=== PATIENT | female | born 1935 | race Caucasian/White ===

== ENCOUNTER 2017-03-23 12:51 | Emergency (ER) | payer MEDICARE, BC ==
[~2017-03-23] VITALS: Ht 154.9 cm; Wt 56.8 kg
[~2017-03-23 12:51] MED LIST: ASPI325T6 PO; ASPIR-LOW81 MG PO; ASPIRIN 32325 MG/TAB; ASPIRIN 81M81 MG/TA2 PO; BETAPACE 120MG120 MG PO; BETAPACE 80MG80 MG PO; CARDIZEM CD 18180 MG PO; CARDIZEM CD 24240 MG PO; CORDARONE200 MG/TAB PO; FISH OIL1 IU PO; HCTZ 25MG TAB25 MG PO; HCTZ PO; LANOXIN 0.120.125 MG PO; LASIX 20MG TABL20 MG PO; LIPITOR 80MG80 MG PO; LIPITOR40 MG PO; MOTRIN 200200 MG/TAB PO; MULTI VITAMINS1 TAB PO; NORVASC 10MG10 MG PO; NORVASC 5MG5 MG/TAB PO; NORVASC PO; PRILOSEC 20MG20 MG PO; THERAPEUTIC VIT1 CAP PO; TIKOSYN0.125 MG PO; TIKOSYN0.25 MG PO; TOPROL XL 25MG25 MG PO; TOPROL XL 50MG50 MG PO; TUMS 500500 MG PO; TUMS500 MG PO; TYLENOL 325MG325 MG PO; TYLENOL 8 HR PO; ULTRAM 50MG TAB50 MG PO; XARELTO20 MG PO
[2017-03-23 12:56] VITALS: TEMP 98.3
[2017-03-23 13:22] LABS: BASO % 0.3 % (0.0-2.0); EOS % 0.2 % (0-4.0); GRAN # 9.2 (1.4-6.5); GRAN % 72.9 % (42.2-75.2); LYMPH # 2.2 (1.2-3.4); LYMPH % 17.3 % (20.0-51.0); MEAN CELL VOLUME 92 fl (80.0-100.0); MEAN CORPUSCULAR HGB CONC 31 g/dl (33.0-37.0); MEAN PLATELET VOLUME 9.8 fl (7.4-10.4); MONO # 1.1 (0.1-0.6); MONO % 8.8 % (1.7-9.3); PLATELET COUNT 382 K/mm3 (130-400); RED BLOOD COUNT 3.62 M/mm3 (4.10-5.30); REDCELL DISTRIBUTION WIDTH-CV 15.5 % (11.5-14.5); WHITE BLOOD COUNT 12.6 K/mm3 (4.8-10.8)
[2017-03-23 13:28] LABS: PARTIAL THROMBOPLASTIN TIME 39.7 SECONDS (26.0-37.0)
[2017-03-23 13:32] LABS: INR 1.6 (0.8-3.0); PROTHROMBIN TIME 17.7 SECONDS (9.7-12.8)
[2017-03-23 13:36] LABS: HEMATOCRIT 33.4 % (37.0-47.0); HEMOGLOBIN 10.5 g/dl (12.5-16.0); MEAN CORPUSCULAR HEMOGLOBIN 29 pg (27.0-31.0)
[2017-03-23 13:48] LABS: ALANINE AMINOTRANSFERASE 16 U/L (9-52); ALBUMIN 4.2 gm/dL (3.5-5.0); ALKALINE PHOSPHATASE 83 U/L (50-136); ANION GAP 14 mmol/L (7-16); BILIRUBIN,TOTAL 0.5 mg/dL (0.0-1.0); BLOOD UREA NITROGEN 22 mg/dL (7-17); CALCIUM 9.2 mg/dL (8.4-10.2); CARBON DIOXIDE 22 mmol/L (22-30); CHLORIDE 103 mmol/L (98-107); CREATININE, serum 0.81 mg/dL (0.52-1.25); GLUCOSE 118 mg/dL (74-106); SODIUM 138 mmol/L (137-145); TOTAL PROTEIN 7.3 gm/dL (6.4-8.2)
[2017-03-23 13:57] LABS: B-TYPE NATRIURETIC PEPTIDE 690 pg/mL (0-450)
[2017-03-23 14:02] LABS: TROPONIN-I < 0.012 ng/mL (0.000-0.034)
[2017-03-23 14:19] LABS: PH 6 (5-8); SQUAMOUS EPITHELIAL 0-2 /hpf; URINE APPEARANCE Clear; URINE BACTERIA Rare /hpf; URINE BILIRUBIN Negative (NEGATIVE); URINE BLOOD Negative (NEGATIVE); URINE COLOR Yellow; URINE GLUCOSE Negative (NEGATIVE); URINE KETONE Negative (NEGATIVE); URINE RBC 0-2 /hpf; URINE UROBILINOGEN Negative (NEGATIVE); URINE WBC 0-2 /hpf
[2017-03-23 17:32] VITALS: BP 149/69; PULSE 63
== END 2017-03-23 17:32 | disposition home or self-care (01) ==
LOC: COL.ER 12:51
PROVIDERS: Emergency Medicine
DX: R42 Dizziness and giddiness (principal); I48.91 Unspecified atrial fibrillation; I10 Essential (primary) hypertension; E78.5 Hyperlipidemia, unspecified; I73.9 Peripheral vascular disease, unspecified; Z95.0 Presence of cardiac pacemaker
CPT/HCPCS: J7040; J7050

== ENCOUNTER 2018-01-23 14:30 | Outpatient (CLI) | payer MEDICARE, BC ==
[~2018-01-23] VITALS: Ht 154.9 cm; Wt 60.0 kg
[2018-01-23 15:06] VITALS: BP 142/60; PULSE 90; TEMP 98
[2018-01-23] MEDS ORDERED: TYLENOL 325MG325 MG PO (15:39)
[2018-01-23] MEDS ORDERED: CARTIA XT240 MG PO (15:40)
[2018-01-23] MEDS ORDERED: LIPITOR 80MG80 MG PO (15:40)
[2018-01-23] MEDS ORDERED: TUMS500 MG (15:40)
[2018-01-23] MEDS ORDERED: HEMOCYTE324 MG PO (15:41)
== END 2018-01-23 17:00 | disposition home or self-care (01) ==
LOC: EUO 14:30
DX: M81.0 Age-related osteoporosis without current pathological fracture (principal)
CPT/HCPCS: J3489

== ENCOUNTER → 2018-03-03 | Outpatient (CLI) | payer MEDICARE, BC ==
[~2018-03-03] MED LIST changes: +CARTIA XT240 MG PO; +HEMOCYTE324 MG PO; +TUMS500 MG
== END ==
LOC: MC.RAD 12:42
DX: Z12.31 Encounter for screening mammogram for malignant neoplasm of breast (principal); N64.89 Other specified disorders of breast

== ENCOUNTER 2018-03-08 07:32 | Day surgery (SDC) | payer MEDICARE, BC ==
[~2018-03-08] VITALS: Ht 155 cm; Wt 59.1 kg
[2018-03-08 08:05] LABS: POTASSIUM 4.3 mmol/L (3.4-5.0)
[2018-03-08 08:10] LABS: INR 1.1 (0.8-3.0); PROTHROMBIN TIME 12.7 SECONDS (9.7-12.8)
[2018-03-08 08:24] VITALS: BP 132/81; PULSE 60
[2018-03-08 08:38] LABS: THYROID STIMULATING HORMONE 5.63 uIU/mL (0.465-4.680)
[2018-03-08] MEDS ORDERED: TOPROL XL100 MG PO (08:50)
== END 2018-03-08 09:05 | disposition home or self-care (01) ==
LOC: COL.CAR 07:32
PROVIDERS: Internal Medicine Cardiovascular Disease
DX: I48.0 Paroxysmal atrial fibrillation (principal); Z53.8 Procedure and treatment not carried out for other reasons; D64.9 Anemia, unspecified; Z86.79 Personal history of other diseases of the circulatory system; Z79.01 Long term (current) use of anticoagulants; I10 Essential (primary) hypertension; M81.0 Age-related osteoporosis without current pathological fracture; I73.9 Peripheral vascular disease, unspecified; M41.9 Scoliosis, unspecified; Z87.891 Personal history of nicotine dependence; Z84.89 Family history of other specified conditions; I08.1 Rheumatic disorders of both mitral and tricuspid valves; Z95.828 Presence of other vascular implants and grafts

== ENCOUNTER → 2018-03-10 | Outpatient (CLI) | payer MEDICARE, BC ==
[~2018-03-10] MED LIST changes: +TOPROL XL100 MG PO
== END ==
LOC: MC.RAD 12:44
DX: N64.89 Other specified disorders of breast (principal)

== ENCOUNTER 2019-07-30 08:56 | Day surgery (SDC) | payer MEDICARE, BC ==
--- NOTE | 2019-07-27 17:39 | NUR ---
Called pt, left a voicemail msg to have pt call back to express unit to discuss procedure on tuesday.
[~2019-07-30] VITALS: Ht 155 cm; Wt 58.7 kg
[2019-07-30 09:19] VITALS: BP 122/85; PULSE 84; TEMP 98
[2019-07-30] MEDS ORDERED: FERROUSAL325 MG PO (09:43)
[2019-07-30 09:57] VITALS: BP 122/85; PULSE 76
[2019-07-30 10:50] VITALS: BP 133/85; PULSE 69; TEMP 97.5
[2019-07-30 11:05] VITALS: BP 119/62; PULSE 69
--- NOTE | 2019-07-30 11:06 | NUR ---
Initial dose of propofol 40mg given into IV in the left AC infiltrated. Pt complained of discomfort. Warm compress applied and new IV site started in the left hand. Post procedure pt reports her arm feels back to normal. No edema or redness noted. This was relayed to RN upon completion of procedure.
[2019-07-30 11:20] VITALS: BP 122/60; PULSE 70
[2019-07-30 11:29] LABS: HEMATOCRIT 37.5 % (37.0-47.0); HEMOGLOBIN 12.2 g/dl (12.5-16.0); MEAN CELL VOLUME 103 fl (80.0-100.0); MEAN CORPUSCULAR HEMOGLOBIN 34 pg (27.0-31.0); MEAN CORPUSCULAR HGB CONC 33 g/dl (33.0-37.0); PLATELET COUNT 239 K/mm3 (130-400); RED BLOOD COUNT 3.63 M/mm3 (4.10-5.30); REDCELL DISTRIBUTION WIDTH-CV 14.1 % (11.5-14.5)
[2019-07-30 11:35] VITALS: BP 111/60; PULSE 70
[2019-07-30 11:44] LABS: INR 2.1 (0.8-3.0); PROTHROMBIN TIME 24.7 SECONDS (9.7-12.8)
[2019-07-30 11:47] LABS: PARTIAL THROMBOPLASTIN TIME 37.3 SECONDS (26.0-37.0)
[2019-07-30 11:48] LABS: CALCIUM 9.2 mg/dL (8.4-10.2); CREATININE, serum 0.88 (0.52-1.25); MAGNESIUM 1.9 mg/dL (1.6-2.3); POTASSIUM 4.3 mmol/L (3.4-5.0)
--- NOTE | 2019-07-30 12:00 | NUR ---
Discharge paperwork discussed with pt. Discussed discharge order/meds, eduation and follow up appointment with pt. Answered all questions to pt's satisfaction. Pt signed discharge forms and placed in chart. Pt discharged and left express unit via wheelchair to private vehicle driven by son.
[2019-07-30 12:17] LABS: THYROID STIMULATING HORMONE 2.89 uIU/mL (0.465-4.680)
== END 2019-07-30 12:00 | disposition home or self-care (01) ==
LOC: COL.CAR 08:56
PROVIDERS: Internal Medicine Cardiovascular Disease
DX: I48.91 Unspecified atrial fibrillation (principal); I71.4 Abdominal aortic aneurysm, without rupture; I10 Essential (primary) hypertension; I73.9 Peripheral vascular disease, unspecified; D64.9 Anemia, unspecified; E78.5 Hyperlipidemia, unspecified; G89.29 Other chronic pain; M48.00 Spinal stenosis, site unspecified; M81.0 Age-related osteoporosis without current pathological fracture; M47.9 Spondylosis, unspecified; Z90.710 Acquired absence of both cervix and uterus; Z95.0 Presence of cardiac pacemaker; Z88.8 Allergy status to other drugs, medicaments and biological substances; Z87.891 Personal history of nicotine dependence; Z82.49 Family history of ischemic heart disease and other diseases of the circulatory system
CPT/HCPCS: J2704; J2710

== ENCOUNTER 2019-12-12 09:33 | Day surgery (SDC) | payer MEDICARE, BC ==
[~2019-12-12] VITALS: Ht 152.5 cm; Wt 59.6 kg
[~2019-12-12 09:33] MED LIST changes: +FERROUSAL325 MG PO; +PACERONE200 MG PO
[2019-12-12] MEDS ORDERED: PACERONE400 MG PO (09:47)
[2019-12-12] MEDS ORDERED: TOPROL XL100 MG PO (09:48)
[2019-12-12] MEDS ORDERED: TIKOSYN0.25 MG PO (09:49)
[2019-12-12 10:10] VITALS: BP 138/90; PULSE 81; TEMP 98.2
[2019-12-12 10:19] LABS: HEMATOCRIT 39.2 % (37.0-47.0); HEMOGLOBIN 12.3 g/dl (12.5-16.0); MEAN CELL VOLUME 105 fl (80.0-100.0); MEAN CORPUSCULAR HEMOGLOBIN 33 pg (27.0-31.0); MEAN CORPUSCULAR HGB CONC 31 g/dl (33.0-37.0); MEAN PLATELET VOLUME 10.1 fl (7.4-10.4); PLATELET COUNT 268 K/mm3 (130-400); RED BLOOD COUNT 3.74 M/mm3 (4.10-5.30); REDCELL DISTRIBUTION WIDTH-CV 14.8 % (11.5-14.5)
[2019-12-12 10:25] LABS: CREATININE, serum 1.16 (0.52-1.25); POTASSIUM 4.6 mmol/L (3.4-5.0)
[2019-12-12 10:44] VITALS: BP 149/80; PULSE 74; TEMP 97
[2019-12-12 10:55] LABS: THYROID STIMULATING HORMONE 11.2 uIU/mL (0.465-4.680)
[2019-12-12 10:59] VITALS: BP 151/80; PULSE 74; TEMP 97
[2019-12-12 11:14] VITALS: BP 152/87; PULSE 74; TEMP 97
[2019-12-12 11:29] VITALS: BP 156/85; PULSE 75; TEMP 97
[2019-12-12 11:59] VITALS: BP 163/88; PULSE 74; TEMP 97
--- NOTE | 2019-12-12 11:59 | NUR ---
INT discontinued intact. Discharge instructions given . Transferred to private car by acacia
== END 2019-12-12 12:00 | disposition home or self-care (01) ==
LOC: COL.CAR 09:33
PROVIDERS: Internal Medicine Cardiovascular Disease
DX: I48.0 Paroxysmal atrial fibrillation (principal); I10 Essential (primary) hypertension; I73.9 Peripheral vascular disease, unspecified; E78.5 Hyperlipidemia, unspecified; D64.9 Anemia, unspecified; I71.4 Abdominal aortic aneurysm, without rupture; M19.90 Unspecified osteoarthritis, unspecified site; G89.29 Other chronic pain; I25.10 Atherosclerotic heart disease of native coronary artery without angina pectoris; K21.9 Gastro-esophageal reflux disease without esophagitis; Z90.710 Acquired absence of both cervix and uterus; Z88.8 Allergy status to other drugs, medicaments and biological substances; Z79.01 Long term (current) use of anticoagulants; Z88.1 Allergy status to other antibiotic agents; Z87.891 Personal history of nicotine dependence; Z95.0 Presence of cardiac pacemaker
CPT/HCPCS: J2704

== ENCOUNTER 2020-03-11 10:28 | Day surgery (SDC) | payer MEDICARE, BC ==
[~2020-03-11] VITALS: Ht 152.4 cm; Wt 60.4 kg
[~2020-03-11 10:28] MED LIST changes: +PACERONE400 MG PO; -THERAPEUTIC VIT1 CAP PO; +XARELTO15 MG PO
[2020-03-11 10:47] VITALS: BP 136/96; PULSE 90
[2020-03-11 11:32] LABS: HEMATOCRIT 38.3 % (37.0-47.0); HEMOGLOBIN 12.1 g/dl (12.5-16.0); MEAN CELL VOLUME 105 fl (80.0-100.0); MEAN CORPUSCULAR HEMOGLOBIN 33 pg (27.0-31.0); MEAN CORPUSCULAR HGB CONC 32 g/dl (33.0-37.0); PLATELET COUNT 229 K/mm3 (130-400); RED BLOOD COUNT 3.65 M/mm3 (4.10-5.30); REDCELL DISTRIBUTION WIDTH-CV 15.2 % (11.5-14.5)
[2020-03-11 11:38] LABS: INR 2.3 (0.8-3.0); PROTHROMBIN TIME 25.4 SECONDS (9.7-12.8)
[2020-03-11 11:41] LABS: PARTIAL THROMBOPLASTIN TIME 42.9 SECONDS (26.0-37.0)
[2020-03-11 11:45] LABS: CALCIUM 9.1 mg/dL (8.4-10.2); CREATININE, serum 1.03 (0.52-1.25); POTASSIUM 4.5 mmol/L (3.4-5.0)
[2020-03-11 12:45] VITALS: BP 154/84; PULSE 75
--- NOTE | 2020-03-11 12:52 | NUR ---
PT BACK FROM OCCUPATIONAL HEALTH COORDINATOR, SHE IS AWAKE AND ALERT, A-PACED ON MONITOR, RT CALLED FOR REPEAT EKG.
[2020-03-11 13:00] VITALS: BP 151/82; PULSE 74
[2020-03-11 13:15] VITALS: BP 163/87; PULSE 74
[2020-03-11 13:30] VITALS: BP 104/98; PULSE 74
--- NOTE | 2020-03-11 13:41 | NUR ---
Pt is ready for discharge. She has remained awake and alert with unlabored respirations during her recovery. I have reviewed dc/fu instructions with her. she has remained apaced with apparent underlying sinus rhythm during her recovery. iv is dc'd with cath intact. PT ESCORTED TO EXIT VIA WHEELCHAIR
== END 2020-03-11 13:45 | disposition home or self-care (01) ==
LOC: COL.CAR 10:28
PROVIDERS: Internal Medicine Cardiovascular Disease
DX: I48.91 Unspecified atrial fibrillation (principal); Z95.0 Presence of cardiac pacemaker; I71.4 Abdominal aortic aneurysm, without rupture; D64.9 Anemia, unspecified; E78.5 Hyperlipidemia, unspecified; I10 Essential (primary) hypertension; G89.29 Other chronic pain; M81.0 Age-related osteoporosis without current pathological fracture; Z87.891 Personal history of nicotine dependence

== ENCOUNTER 2020-05-17 12:10 | Emergency (ER) | payer MEDICARE, BC ==
[~2020-05-17] VITALS: Ht 154.9 cm; Wt 59.1 kg
[~2020-05-17 12:10] MED LIST changes: +NORCO 325 MG-51 TAB PO; +OMNICEF 300MG300 MG PO
[2020-05-17 12:16] VITALS: TEMP 98.4
[2020-05-17 12:46] LABS: BASO % 0.3 % (0.0-2.0); EOS % 0.4 % (0-4.0); GRAN # 8.4 (1.4-6.5); GRAN % 76.4 % (42.2-75.2); HEMATOCRIT 38.3 % (37.0-47.0); HEMOGLOBIN 12.4 g/dl (12.5-16.0); LYMPH # 1.4 (1.2-3.4); LYMPH % 13.1 % (20.0-51.0); MEAN CELL VOLUME 102 fl (80.0-100.0); MEAN CORPUSCULAR HEMOGLOBIN 33 pg (27.0-31.0); MEAN CORPUSCULAR HGB CONC 32 g/dl (33.0-37.0); MEAN PLATELET VOLUME 9.8 fl (7.4-10.4); MONO % 9.3 % (1.7-9.3); PLATELET COUNT 256 K/mm3 (130-400); RED BLOOD COUNT 3.74 M/mm3 (4.10-5.30); REDCELL DISTRIBUTION WIDTH-CV 14.2 % (11.5-14.5)
[2020-05-17 13:00] LABS: ALANINE AMINOTRANSFERASE 27 U/L (4-34); ALBUMIN 3.9 gm/dL (3.5-5.0); ALKALINE PHOSPHATASE 62 U/L (50-136); ANION GAP 7 mmol/L (7-16); AST,SGOT 38 U/L (15-37); BILIRUBIN,TOTAL 0.7 mg/dL (0.0-1.0); BLOOD UREA NITROGEN 17 mg/dL (7-17); CALCIUM 8.9 mg/dL (8.4-10.2); CARBON DIOXIDE 25 mmol/L (22-30); CHLORIDE 101 mmol/L (98-107); CREATININE, serum 0.95 (0.52-1.25); GLUCOSE 101 mg/dL (74-106); POTASSIUM 4.5 mmol/L (3.4-5.0); SODIUM 133 mmol/L (137-145); TOTAL PROTEIN 6.8 gm/dL (6.4-8.2)
[2020-05-17 13:13] LABS: C-REACTIVE PROTEIN < 0.5 mg/dL (0.0-0.9)
[2020-05-17 13:27] LABS: COLLECTION METHOD CLEAN CATCH
[2020-05-17 13:33] LABS: MUCOUS Present /lpf; PH 6 (5-8); URINE APPEARANCE Cloudy; URINE BACTERIA None Seen /hpf; URINE BILIRUBIN Negative (NEGATIVE); URINE BLOOD 3+ (NEGATIVE); URINE COLOR Yellow; URINE GLUCOSE Negative (NEGATIVE); URINE KETONE Negative (NEGATIVE); URINE LEUKOCYTE ESTERASE Negative (NEGATIVE); URINE NITRATE Negative (NEGATIVE); URINE PROTEIN(semi-quant) 1+ (NEGATIVE); URINE RBC 0-2 /hpf; URINE UROBILINOGEN Negative (NEGATIVE)
[2020-05-17] MEDS ORDERED: LIDODERM 5% PATC1 EA TP (14:48)
[2020-05-17 14:55] VITALS: BP 152/85; PULSE 88
== END 2020-05-17 15:15 | disposition home or self-care (01) ==
LOC: COL.ER 12:10
PROVIDERS: Emergency Medicine
DX: M54.5 Low back pain (principal); Z95.828 Presence of other vascular implants and grafts
CPT/HCPCS: J1100; J1170; J7030

== ENCOUNTER 2020-08-13 12:59 | Emergency (ER) | payer MEDICARE, BC ==
[~2020-08-13] VITALS: Ht 154.9 cm; Wt 59.1 kg
[~2020-08-13 12:59] MED LIST changes: +LIDODERM 5% PATC1 EA TP
[2020-08-13 13:55] LABS: BASO % 0.1 % (0.0-2.0); EOS % 0.1 % (0-4.0); GRAN # 12.7 (1.4-6.5); HEMOGLOBIN 12.7 g/dl (12.5-16.0); LYMPH # 1.2 (1.2-3.4); LYMPH % 8.1 % (20.0-51.0); MEAN CELL VOLUME 105 fl (80.0-100.0); MEAN CORPUSCULAR HEMOGLOBIN 33 pg (27.0-31.0); MEAN CORPUSCULAR HGB CONC 32 g/dl (33.0-37.0); MEAN PLATELET VOLUME 10.9 fl (7.4-10.4); MONO % 6.4 % (1.7-9.3); PLATELET COUNT 215 K/mm3 (130-400); REDCELL DISTRIBUTION WIDTH-CV 15.6 % (11.5-14.5)
[2020-08-13 14:01] LABS: INR 2.3 (0.8-3.0); PROTHROMBIN TIME 26.3 SECONDS (9.7-12.8)
[2020-08-13 14:04] LABS: ALBUMIN 4.2 gm/dL (3.5-5.0); CALCIUM 8.9 mg/dL (8.4-10.2); POTASSIUM 4.2 mmol/L (3.4-5.0); TOTAL PROTEIN 7.1 gm/dL (6.4-8.2)
[2020-08-13 14:20] LABS: TROPONIN-I 0.014 ng/mL (0.000-0.035)
[2020-08-13 18:27] VITALS: BP 168/107; PULSE 80; TEMP 97.6
== END 2020-08-13 18:27 | disposition home or self-care (01) ==
LOC: COL.ER 12:59
PROVIDERS: Emergency Medicine
DX: I13.0 Hypertensive heart and chronic kidney disease with heart failure and stage 1 through stage 4 chronic kidney disease, or unspecified chronic kidney disease (principal); I50.9 Heart failure, unspecified; N18.9 Chronic kidney disease, unspecified; I48.91 Unspecified atrial fibrillation; E78.5 Hyperlipidemia, unspecified; I71.4 Abdominal aortic aneurysm, without rupture; Z20.828 Contact with and (suspected) exposure to other viral communicable diseases; Z95.0 Presence of cardiac pacemaker; Z79.01 Long term (current) use of anticoagulants
CPT/HCPCS: J1940; J7030; J7040

== ENCOUNTER 2020-11-19 18:10 | Inpatient (IN) | payer MEDICARE, BC ==
[~2020-11-19] VITALS: Ht 154.9 cm; Wt 56.3 kg
[2020-11-19 19:50] LABS: BASO % 0.5 % (0.0-2.0); EOS # 0.1 (0.0-0.7); EOS % 0.8 % (0-4.0); GRAN # 5.9 (1.4-6.5); HEMOGLOBIN 10.7 g/dl (12.5-16.0); LYMPH # 1.4 (1.2-3.4); LYMPH % 16.8 % (20.0-51.0); MEAN CELL VOLUME 106 fl (80.0-100.0); MEAN CORPUSCULAR HEMOGLOBIN 34 pg (27.0-31.0); MEAN CORPUSCULAR HGB CONC 32 g/dl (33.0-37.0); MEAN PLATELET VOLUME 10.4 fl (7.4-10.4); MONO # 0.9 (0.1-0.6); MONO % 10.7 % (1.7-9.3); PLATELET COUNT 268 K/mm3 (130-400); RED BLOOD COUNT 3.18 M/mm3 (4.10-5.30); REDCELL DISTRIBUTION WIDTH-CV 13.5 % (11.5-14.5)
[2020-11-19 19:55] LABS: HEMATOCRIT 33.6 % (37.0-47.0)
[2020-11-19 19:59] LABS: BILIRUBIN,TOTAL 0.4 mg/dL (0.0-1.0); CALCIUM 8.9 mg/dL (8.4-10.2); CREATININE, serum 1.23 (0.52-1.25); POTASSIUM 4.2 mmol/L (3.4-5.0); TOTAL PROTEIN 6.7 gm/dL (6.4-8.2)
[2020-11-19 20:01] LABS: INR 1.4 (0.8-3.0); PROTHROMBIN TIME 15.8 SECONDS (9.7-12.8)
[2020-11-19 20:04] LABS: PARTIAL THROMBOPLASTIN TIME 33.5 SECONDS (26.0-37.0)
[2020-11-19] MEDS ORDERED: PRINIVIL10 MG PO (20:06)
[2020-11-19] MEDS ORDERED: PLAVIX 75MG TAB75 MG PO (20:07)
[2020-11-19] MEDS ORDERED: SYNTHROID0.075 MG/T PO (20:07)
[2020-11-19 23:32] VITALS: BP 141/73; PULSE 71; TEMP 97.6
[2020-11-20] VITALS (9 sets, daily range): BP systolic 114–160; BP diastolic 66–88; PULSE 68–82; TEMP 97.5–98.7
[2020-11-20 01:30] LABS: HEMATOCRIT 26.8 % (37.0-47.0); HEMOGLOBIN 8.4 g/dl (12.5-16.0)
[2020-11-20 06:25] LABS: HEMATOCRIT 29.8 % (37.0-47.0); HEMOGLOBIN 9.1 g/dl (12.5-16.0)
[2020-11-20 06:36] LABS: CREATININE, serum 0.91 (0.52-1.25); POTASSIUM 4.2 mmol/L (3.4-5.0)
--- NOTE | 2020-11-20 10:51 | NUR ---
Assessment completed, alert/oriented, vital signs stable, denies pain or discomfort, heber any further black or bloody stools, abd is soft and non-tender, BS+, heart RRR/ distal pulses are palpable, lungs CTA/ no resp.difficulty noted, scheduled for EGD today/ consent is signed and daughter present at bedside, rapid COVID swab negative, deny questions or concerns
--- NOTE | 2020-11-20 11:10 | NUR ---
Cleater met with the patient and the patient's [id number], Kirstin to complete intake. The patient lives independently in [place] with her . The patient has a cane and walker, if needed. The patient's PCP is Dr. Adams and patient receives medications from [facility]. The patient does not have advanced directives in the EMR but states they are complete. The patient plans to return home at discharge and Kirstin will provide transporation. There are no additional needs at this time.
--- NOTE | 2020-11-20 11:25 | NUR ---
First visit from the mobile equipment mechanic. No needs right now.
--- NOTE | 2020-11-20 12:30 | NUR ---
Patient arrived back to room 314 from ENDO at this time, she is alert/oriented, vital signs stable, denies pain, daughter present at bedside
[2020-11-20 13:22] LABS: HEMATOCRIT 31.3 % (37.0-47.0); HEMOGLOBIN 9.4 g/dl (12.5-16.0)
[2020-11-20 19:56] LABS: FOLATE (FOLIC ACID) >20.0 ng/mL (7.0-31.4)
[2020-11-21 00:08] VITALS: BP 143/75; PULSE 81; TEMP 98.5
[2020-11-21 03:59] VITALS: BP 150/75; PULSE 81; TEMP 98.1
[2020-11-21 07:05] LABS: MEAN CORPUSCULAR HGB CONC 31 g/dl (33.0-37.0); MEAN PLATELET VOLUME 10.9 fl (7.4-10.4); PLATELET COUNT 215 K/mm3 (130-400); REDCELL DISTRIBUTION WIDTH-CV 13.5 % (11.5-14.5)
[2020-11-21 07:08] LABS: HEMATOCRIT 31.1 % (37.0-47.0); HEMOGLOBIN 9.6 g/dl (12.5-16.0); MEAN CELL VOLUME 111 fl (80.0-100.0); MEAN CORPUSCULAR HEMOGLOBIN 34 pg (27.0-31.0)
[2020-11-21 07:16] LABS: ALBUMIN 3.3 gm/dL (3.5-5.0); BILIRUBIN,TOTAL 0.6 mg/dL (0.0-1.0); CALCIUM 8.5 mg/dL (8.4-10.2); CREATININE, serum 0.86 (0.52-1.25); POTASSIUM 4.5 mmol/L (3.4-5.0); TOTAL PROTEIN 5.9 gm/dL (6.4-8.2)
[2020-11-21 08:02] VITALS: BP 158/69; PULSE 70; TEMP 98.5
--- NOTE | 2020-11-21 09:08 | NUR ---
Pt sitting up in bed. She has had and tolerated her breakfast. She states that she is having some acid reflux. She reports that her thyroid medication does it. Tums ordered. She also states that she feels tired today. No other complaints. Will continu to monitor
[2020-11-21] MEDS ORDERED: ELIQUIS 2.5 PO (09:29)
[2020-11-21] MEDS ORDERED: PROTONIX 40MG T40 MG PO (09:30)
--- NOTE | 2020-11-21 11:15 | NUR ---
Pt is anxious about leaving. Therapy has worked with patient and reports she did well. ANTONINO Moss assisting patient with getting dressed. Tele called and informed patient will be going home. INT removed by Isa as well.
--- NOTE | 2020-11-21 11:45 | NUR ---
Reviewed dicharge instructions with patient to include prescriptions and appointments. Pt has no questions and is calling her ride. Informed her to notify nursing when her ride is here so that she can be walked out.
--- NOTE | 2020-11-21 12:00 | NUR ---
Laborer Rags attended clinical rounds with the team. The patient is to discharge home today, 11/21. PT ordered. PTs recommendation is home. After rounds, SW met with the patient to discuss the benefits of home health and provided Medicare.gov's list of home health agencies. The patient declined home health. The patient's [id number], Kirstin will provide transportation. There are no additional needs.
--- NOTE | 2020-11-21 12:02 | NUR ---
Pt escorted out at this time
--- NOTE | 2020-11-21 12:28 | NUR ---
Primary nurse was assisted with [id number] patient care by [employer] student Isa Betancourt and [employer] instructor Traci Cabrera RN-.
== END 2020-11-21 12:03 | disposition home or self-care (01) | DRG 379 ==
LOC: COL.ER 18:10 → MEDICAL 21:07
PROVIDERS: Emergency Medicine; Internal Medicine Gastroenterology; Physician Assistant; ADMIT Hospitalist
PROC: 0DJ08ZZ Inspection of Upper Intestinal Tract, Via Natural or Artificial Opening Endoscopic (ICD-10-PCS; principal; 2020-11-20 12:30)
DX: K25.4 Chronic or unspecified gastric ulcer with hemorrhage (principal); I48.91 Unspecified atrial fibrillation; I11.0 Hypertensive heart disease with heart failure; I50.9 Heart failure, unspecified; E78.5 Hyperlipidemia, unspecified; I73.9 Peripheral vascular disease, unspecified; D53.9 Nutritional anemia, unspecified; I25.10 Atherosclerotic heart disease of native coronary artery without angina pectoris; Z95.0 Presence of cardiac pacemaker; Z79.01 Long term (current) use of anticoagulants; Z87.891 Personal history of nicotine dependence; Z95.5 Presence of coronary angioplasty implant and graft; Z20.822 Contact with and (suspected) exposure to COVID-19
CPT/HCPCS: 99222-AI; 99223-AI; 99232-AI; 99239; C9113; J2704; J7030

== ENCOUNTER 2023-11-25 18:46 | Inpatient (IN) | payer MEDICARE, BC ==
[~2023-11-25] VITALS: Ht 152.4 cm; Wt 53.3 kg
[~2023-11-25 18:46] MED LIST changes: +ELIQUIS 2.5 PO; +PLAVIX 75MG TAB75 MG PO; +PRINIVIL10 MG PO; +PROTONIX 40MG T40 MG PO; +SYNTHROID0.075 MG/T PO
[2023-11-25] MEDS ORDERED: Albuterol/Ipratropium 3 MG-0.5 MG/3 ML Neb Soln IH SCH (20:15)
[2023-11-25] MEDS ORDERED: predniSONE 20 MG TAB PO ONE (20:15)
[2023-11-25 21:09] LABS: MEAN CELL VOLUME 98 fl (80.0-100.0); MEAN CORPUSCULAR HGB CONC 31 g/dl (33.0-37.0); MEAN PLATELET VOLUME 10.6 fl (7.4-10.4); PLATELET COUNT 219 K/mm3 (130-400); RED BLOOD COUNT 3.12 M/mm3 (4.10-5.30); REDCELL DISTRIBUTION WIDTH-CV 15.9 % (11.5-14.5)
[2023-11-25 21:24] LABS: ALBUMIN 3.6 gm/dL (3.4-4.8); BILIRUBIN,TOTAL 0.4 mg/dL (0.2-1.2); CREATININE, serum 1.14 mg/dL (0.57-1.11); POTASSIUM 4.1 mmol/L (3.5-4.5); TOTAL PROTEIN 6.8 gm/dL (6.2-8.1)
[2023-11-25 21:30] LABS: HEMATOCRIT 30.6 % (37.0-47.0); HEMOGLOBIN 9.4 g/dl (12.5-16.0); MEAN CORPUSCULAR HEMOGLOBIN 30 pg (27-31)
[2023-11-25 21:31] LABS: TROPONIN-I 0.04 ng/mL (0.00-0.033)
[2023-11-25] MEDS ORDERED: Acetaminophen 325 MG TAB PO PRN ×2 (21:45→22:30)
[2023-11-25 21:54] LABS: BAND 16 % (0-10); HYPOCHROMIA 1+; LYMPHOCYTE 8 % (20.0-51.0); METAMYELOCYTE 2 % (0-0); NEUTROPHILS 60 % (42.0-75.2); PLATELET ESTIMATE NORMAL (NORMAL)
[2023-11-25] MEDS ORDERED: Albuterol/Ipratropium 3 MG-0.5 MG/3 ML Neb Soln IH PRN (22:00)
[2023-11-25] MEDS ORDERED: cefTRIAXone 1 G in Water For Injection,Sterile 10 ML IV SCH (22:00)
[2023-11-25] MEDS ORDERED: Azithromycin 250 MG TAB PO SCH (22:01)
[2023-11-25] MEDS ORDERED: Oseltamivir 30 MG CAP PO SCH (22:03)
[2023-11-25] MEDS ORDERED: SYNTHROID0.05 MG/TA PO (22:20)
[2023-11-25] MEDS ORDERED: Apixaban 2.5 MG TAB PO SCH (22:21)
[2023-11-25] MEDS ORDERED: PRINIVIL40 MG PO (22:24)
[2023-11-25] MEDS ORDERED: traMADol 50 MG TAB PO PRN (22:30)
[2023-11-25 23:45] VITALS: BP 145/74; PULSE 73; TEMP 98.5
[2023-11-26] VITALS (10 sets, daily range): BP systolic 108–123; BP diastolic 54–75; PULSE 69–74; TEMP 98.2–98.8
[2023-11-26] MEDS ORDERED: MULTI-VITAMIN W1 TA1 PO (00:43)
[2023-11-26] MEDS ORDERED: Albuterol/Ipratropium 3 MG-0.5 MG/3 ML Neb Soln IH SCH (02:00)
--- NOTE | 2023-11-26 05:30 | NUR ---
PT ARRIVED TO THE MEDICAL FLOOR AROUND [id number] TO ROOM 357. PT A&O X 4; VSS FOR PT; O2 AT 0.5L VIA NC. PT DENIED GENERAL PAIN, CHEST PAIN, PALPITATIONS, N,V,D, SOB OR DIZZINESS.ADMISSIONS ASSESSMENT AND MED REC COMPLETE. PT ORIENTED TO ROOM AND HOSPITAL POLICY. ALL QUESTIONS AND CONCERNS ADRESSED. CALL LIGHT WITHIN REACH.
[2023-11-26 06:41] LABS: MEAN CELL VOLUME 94 fl (80.0-100.0); MEAN CORPUSCULAR HGB CONC 32 g/dl (33.0-37.0); MEAN PLATELET VOLUME 10.7 fl (7.4-10.4); PLATELET COUNT 199 K/mm3 (130-400); RED BLOOD COUNT 2.83 M/mm3 (4.10-5.30); REDCELL DISTRIBUTION WIDTH-CV 15.6 % (11.5-14.5)
[2023-11-26 06:57] LABS: CALCIUM 8.7 mg/dL (8.4-10.2); CREATININE, serum 0.99 mg/dL (0.57-1.11); POTASSIUM 4.2 mmol/L (3.5-4.5)
[2023-11-26 06:59] LABS: HEMATOCRIT 26.7 % (37.0-47.0); HEMOGLOBIN 8.4 g/dl (12.5-16.0); MEAN CORPUSCULAR HEMOGLOBIN 30 pg (27-31)
[2023-11-26 07:11] LABS: CHOLESTEROL RISK RATIO 3.2
[2023-11-26 07:54] LABS: BAND 11 % (0-10); LYMPHOCYTE 4 % (20.0-51.0); NEUTROPHILS 82 % (42.0-75.2); NUCLEATED RED BLOOD CELL 2 (0-6); PLATELET ESTIMATE NORMAL (NORMAL)
[2023-11-26] MEDS ORDERED: dexAMETHasone 10 MG/ML VIAL IV SCH (09:00)
[2023-11-26] MEDS ORDERED: Furosemide 40 MG TAB PO SCH (09:00)
--- NOTE | 2023-11-26 12:53 | NUR ---
linotype worker met with patient and Samy to discuss discharge planning. Samy (son) P# or . PCP is Dr. Adams, pharmacy is [facility]. No issues with affording medications. DPOA-HC is amanda Cosby, . DME is walker, cane, tub transfer bench. Patient reports to be independent with ADLS and her son, Samy, transports her to and from appointments. SW discussed home health services. patient understands what they are but does not want them at this time, Samy agreed patient does not need home health at this time. SW explained if patient returns home and wants those services she could meet with her PCP. Patient would like to return home at time of discharge. Discharge plan: Home
[2023-11-27 00:15] VITALS: BP 133/62; PULSE 74; TEMP 98.7
[2023-11-27 04:15] VITALS: BP 135/61; PULSE 70; TEMP 97.8
[2023-11-27 07:20] VITALS: BP 148/66; PULSE 77; TEMP 97.5
--- NOTE | 2023-11-27 07:26 | NUR ---
PATIENT ASLEEP, RESTING IN BED. KRISTAL ROUSEES EASILY TO NAME. PATIENT DENIES ANY SOB OR COMPLAINTS AT THIS TIME. VSS. PATIENT OR SATURATOINI 93% ON ROOM AIR. CALL LIGHT WITHIN REACH.
[2023-11-27 07:55] LABS: MEAN CELL VOLUME 96 fl (80.0-100.0); MEAN CORPUSCULAR HGB CONC 31 g/dl (33.0-37.0); MEAN PLATELET VOLUME 10.9 fl (7.4-10.4); PLATELET COUNT 201 K/mm3 (130-400); RED BLOOD COUNT 2.61 M/mm3 (4.10-5.30); REDCELL DISTRIBUTION WIDTH-CV 15.9 % (11.5-14.5)
[2023-11-27 08:03] LABS: HEMATOCRIT 25.1 % (37.0-47.0); HEMOGLOBIN 7.7 g/dl (12.5-16.0); MEAN CORPUSCULAR HEMOGLOBIN 30 pg (27-31)
[2023-11-27 08:15] LABS: CREATININE, serum 0.99 mg/dL (0.57-1.11); POTASSIUM 3.8 mmol/L (3.5-4.5)
[2023-11-27 08:30] LABS: ANISOCYTOSIS 1+; BAND 7 % (0-10); LYMPHOCYTE 6 % (20.0-51.0); NEUTROPHILS 75 % (42.0-75.2); OVALOCYTES 1+; PLATELET ESTIMATE NORMAL (NORMAL)
[2023-11-27 08:31] LABS: BURR CELLS 1+
[2023-11-27 09:00] VITALS: BP_SYST 148
[2023-11-27] MEDS ORDERED: predniSONE 20 MG TAB PO SCH (09:00)
[2023-11-27] MEDS ORDERED: TAMIFLU30 MG PO (09:27)
--- NOTE | 2023-11-27 10:26 | NUR ---
PATIENT IV AND TELE REMOVED. FELISA GIVEN DISCHARGE INSTRUCTIONS AND EDUCAITON. PATEINT AWARE FAX FOR FOLLOW UP SENT TO HER PCP. HOWEVER PATIENT AWARE TO CALL TOMORROW IF SHE DOES NOT RECEIVE A CALL IN THE AM.
--- NOTE | 2023-11-27 11:00 | NUR ---
PATIENT TAKEN VIA WHEELCHAIR TO ER ENTRANCE WHERE SHE LEFT IN STABLE CONDITION WITH HER SON.
[2023-11-27] MEDS ORDERED: MEDROL 4MG DOSPA4 MG PO (11:39)
[2023-11-27] MEDS ORDERED: PROAIR HFA0.09 MG/AC IH (11:39)
== END 2023-11-27 11:00 | disposition home or self-care (01) | DRG 193 ==
LOC: COL.ER 18:46 → MEDICAL 21:58
PROVIDERS: Emergency Medicine; Nurse Practitioner Family; ADMIT Internal Medicine
DX: J10.1 Influenza due to other identified influenza virus with other respiratory manifestations (principal); J96.01 Acute respiratory failure with hypoxia; I13.0 Hypertensive heart and chronic kidney disease with heart failure and stage 1 through stage 4 chronic kidney disease, or unspecified chronic kidney disease; Z20.822 Contact with and (suspected) exposure to COVID-19; I48.91 Unspecified atrial fibrillation; D64.9 Anemia, unspecified; Z66 Do not resuscitate; I25.10 Atherosclerotic heart disease of native coronary artery without angina pectoris; I50.9 Heart failure, unspecified; R79.89 Other specified abnormal findings of blood chemistry; K25.7 Chronic gastric ulcer without hemorrhage or perforation; N18.31 Chronic kidney disease, stage 3a; H26.9 Unspecified cataract; I73.9 Peripheral vascular disease, unspecified; E78.5 Hyperlipidemia, unspecified; M81.0 Age-related osteoporosis without current pathological fracture; Z95.5 Presence of coronary angioplasty implant and graft; Z95.0 Presence of cardiac pacemaker; Z90.710 Acquired absence of both cervix and uterus; Z90.49 Acquired absence of other specified parts of digestive tract; Z87.891 Personal history of nicotine dependence; Z79.899 Other long term (current) drug therapy; Z79.01 Long term (current) use of anticoagulants; Z79.890 Hormone replacement therapy; Z23 Encounter for immunization
CPT/HCPCS: G0378; J0696; J1100; J7512